=== PATIENT | male | born 1970 | race Caucasian/White ===

== ENCOUNTER 2019-05-16 08:00 | Day surgery (SDC) | payer BC ==
[~2019-05-16] VITALS: Ht 185.4 cm; Wt 81.6 kg
[~2019-05-16 08:00] MED LIST: BUSP10TA3 PO; FISHOIL; MINO50CA6 PO; MULT-415 PO; SODIUM CHLORIDE 0.9% 1000ML 1,000 ML IV ONE; VITA1CAP85 PO
[2019-05-16 09:38] VITALS: BP 127/74
[2019-05-16 09:48] LABS: EOSINOPHILS % (AUTO) 9.9 % (0.0-8.0); HEMATOCRIT 38.6 % (42-54); LYMPHOCYTES % (AUTO) 40.3 % (21.0-51.0); MEAN CORPUSCULAR HEMOGLOBIN 35.2 pg (27.0-33.0); MEAN CORPUSCULAR VOLUME 100.8 fL (79-99); MONOCYTES % (AUTO) 7.4 % (3.0-13.0); NEUTROPHILS % (AUTO) 41.4 % (40.0-77.0); NUCLEATED RED BLOOD CELLS 0.1 % (0.0-0.19); PLATELET COUNT (AUTO) 178 K/uL (130-400); RED BLOOD CELL COUNT(AUTO) 3.83 MIL/uL (4.50-6.20); RED CELL DISTRIBUTION WIDTH 12.3 % (11.0-15.5); WHITE BLOOD COUNT (AUTO) 3.8 K/uL (4.8-10.8)
[2019-05-16 10:00] LABS: PROTHROMBIN TIME 10.5 SEC (9.6-11.6)
[2019-05-16 11:13] VITALS: BP 99/63
[2019-05-16 11:18] VITALS: BP 99/64
[2019-05-16 11:25] VITALS: BP 100/73
[2019-05-16 11:32] VITALS: BP 118/83
[2019-05-16 11:35] VITALS: BP 120/77
== END 2019-05-16 11:43 | disposition home or self-care (01) ==
LOC: ENDO 08:00 → DAH 08:00 → ENDO 11:43
PROVIDERS: ATTEND Internal Medicine
DX: K29.50 Unspecified chronic gastritis without bleeding (principal); K86.89 Other specified diseases of pancreas; K31.89 Other diseases of stomach and duodenum; K85.90 Acute pancreatitis without necrosis or infection, unspecified; D69.6 Thrombocytopenia, unspecified; Z79.899 Other long term (current) drug therapy
CPT/HCPCS: 36415; 43237; 43239; 85025; 85610; A4606; J7030; 43232

== ENCOUNTER 2024-08-15 17:14 | Emergency (ER) | payer OTHER ==
[~2024-08-15] VITALS: Ht 182.9 cm; Wt 88.9 kg
[~2024-08-15 17:14] MED LIST changes: +ALLO300T2 PO; -BUSP10TA3 PO; +CYAN-106 PO; -FISHOIL; +FLUO40CA49 PO; +GABA-1405 PO; +LIDOP TP; -MINO50CA6 PO; +MULT-248 PO; -MULT-415 PO; +PRAZ2CAP2 PO; -SODIUM CHLORIDE 0.9% 1000ML 1,000 ML IV ONE; +THIA500T3 PO; +TRAZ150T79 PO; -VITA1CAP85 PO
[2024-08-15] MEDS: 0.9%NACL 1000ML 1,000 ML IV ONE (17:42)
[2024-08-15] MEDS: morPHINE 2 MG SYG IVP ONE (17:42)
[2024-08-15] MEDS: FAMOTIDINE 20MG VIAL IV ONE (17:42)
[2024-08-15] MEDS: ondanSETRON 4MG INJ IVP ONE (17:42)
[2024-08-15 17:53] LABS: BASOPHILS # (AUTO) 0.02 K/uL (0.00-0.20); BASOPHILS % (AUTO) 0.4 % (0.0-5.0); EOSINOPHILS # (AUTO) 0.08 K/uL (0.00-0.70); EOSINOPHILS % (AUTO) 1.7 % (0.0-8.0); HEMATOCRIT 40.3 % (42-54); IMMATURE GRANULOCYTE ABSOLUTE 0.02 K/uL (0-1); LYMPHOCYTES # (AUTO) 1.8 K/uL (1.0-4.8); LYMPHOCYTES % (AUTO) 39.3 % (21.0-51.0); MEAN CORPUSCULAR HEMOGLOBIN 33.3 pg (27.0-33.0); MEAN CORPUSCULAR HGB CONC 35.5 g/dL (32.0-36.0); MEAN CORPUSCULAR VOLUME 93.7 fL (79-99); MONOCYTES # (AUTO) 0.2 K/uL (0.1-1.0); MONOCYTES % (AUTO) 3.6 % (3.0-13.0); NEUTROPHILS # (AUTO) 2.6 K/uL (1.8-7.7); NEUTROPHILS % (AUTO) 54.6 % (40.0-77.0); PLATELET COUNT (AUTO) 74 K/uL (130-400); WHITE BLOOD COUNT (AUTO) 4.7 K/uL (4.8-10.8)
[2024-08-15 18:00] LABS: POTASSIUM 3.7 mmol/L (3.5-5.1)
[2024-08-15 18:12] LABS: ALBUMIN 4.4 g/dL (3.5-5.0); BILIRUBIN,DIRECT 0.1 mg/dL (0.0-0.3); BILIRUBIN,TOTAL 0.4 mg/dL (0.2-1.0); TOTAL PROTEIN, SERUM 7.6 g/dL (6.0-8.3)
[2024-08-15] MEDS ORDERED: FAMO-136 PO (18:53)
[2024-08-15] MEDS ORDERED: ONDA-243 PO (18:53)
[2024-08-15 18:56] VITALS: BP 127/79; PULSE 69; RESP 18; TEMP 98.7; O2SAT 96
== END 2024-08-15 19:01 | disposition home or self-care (01) ==
LOC: EDH 17:14
DX: R10.13 Epigastric pain (principal); E11.9 Type 2 diabetes mellitus without complications; E78.00 Pure hypercholesterolemia, unspecified; F32.A Depression, unspecified; F41.9 Anxiety disorder, unspecified; Z79.899 Other long term (current) drug therapy
CPT/HCPCS: 99285; 96374; 96375; 71045; 96361; 84478; 80076; 84484; 80048; 83690; 85025; 36415; 93005; J3490; J2270; J7030; J2405